=== PATIENT | male | born 1940 | race Caucasian/White ===

== ENCOUNTER 2016-10-02 09:02 | Emergency (ER) | payer MEDICARE ==
--- NOTE | 2016-10-02 11:22 | RAD ---
Indication: Left rib pain after fall. No prior study is available for comparison. 2 views of the chest including dual energy PA views demonstrate no mediastinal shift. Mild cardiomegaly is noted. Lung kaplan appear hyperinflated. Pacemaker leads are in place. IMPRESSION: Hyperinflated lung kaplan without evidence of pneumothorax.
--- NOTE | 2016-10-02 11:23 | RAD ---
Indication: Left rib pain 3 views of left ribs demonstrate no definite fracture. No pneumothorax is noted. Degenerative changes of the glenohumeral joint is noted. IMPRESSION: No fracture of the left RIBS is identified.
--- NOTE | 2016-10-02 11:23 | RAD ---
INDICATION: Left femur injury. TECHNIQUE: 2 views of the left femur were obtained. FINDINGS: The bones are normal alignment. No fracture is seen. 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 IMPRESSION: NO EVIDENCE FOR FRACTURE.
--- NOTE | 2016-10-02 11:23 | RAD ---
INDICATION: Left ankle injury. TECHNIQUE: 3 views of the left ankle were obtained. FINDINGS: Soft tissue swelling is noted along the anterolateral aspect of the ankle. No fracture is seen. Joint spaces appear maintained. IMPRESSION: SOFT TISSUE SWELLING, NO FRACTURE IS SEEN.
--- NOTE | 2016-10-23 09:59 | UC ---
Gustabo Hernandez Aidan, scribed for Alpa Torres MD on 10/02/16 at 1005 . Truncal Trauma HPI - HPI Summary HPI Summary: 76 y/o male presents to the Urgent Care with a complaint of acute, constant, moderate (7/10) left rib, left ankle, and left leg pain that resulted from him missing a step and falling down 4 steps before crashing into a flower pot and landing on his left ankle, knee, head and ribcage on the grass. Standing up and sitting down slightly aggravates his pain. According to the patients daughter, he flew 10 feet before hitting the flower pot. Pt denies any LOC, neck pain, or BUCK. He is currently on Cerealto. He declines analgesics. - History Of Current Complaint Chief Complaint: UCUpperExtremity Stated Complaint: RIB INJURY Time Seen by Provider: 10/02/16 09:37 Hx Obtained From: Patient, Family/Private Inquiry Agent - daughter Onset/Duration: Sudden Onset, Lasting Hours - just over an hour ago, Still Present Onset Of Pain: Immediate - immediately after accident Severity Initially: Moderate Severity Currently: Moderate Pain Intensity: 7 Pain Scale Used: 0-10 Numeric Mechanism Of Injury: Fall From Height Of: - 4 steps (roughly 10 feet according to the daughter who witnessed the fall) Aggravating Factor(s): Movement - standing up and sitting down aggravates the pain Alleviating factor(s): Nothing - unknown Associated Signs And Symptoms: Negative: Negative - left rib, left ankle, and left leg pain Related History: Heart Disease - Allergies/Home Medications Allergies/Adverse Reactions: Allergies Allergy/AdvReac Type Severity Reaction Status Date / Time Penicillins [PCN] Allergy Hives Verified 10/02/16 09:10 Home Medications: Home Medications Alprazolam [Xanax Xr] 0.5 mg PO 10/02/16 [History] Amlodipine Besylate [Norvasc 2.5 mg tab] 2.5 mg PO DAILY 10/02/16 [History Confirmed 10/02/16] Atorvastatin* [Lipitor*] 20 mg PO 1700 10/02/16 [History Confirmed 10/02/16] Esomeprazole(NF) [NexIUM(NF)] 40 mg PO DAILY 10/02/16 [History Confirmed ] Fluticasone-Salmeterol 500-50* [Advair Diskus 500-50*] 1 puff INH BID 10/02/16 [ History Confirmed 10/02/16] Glucosamine Sulfate [Glucosamine] 1,000 mg PO 10/02/16 [History] Metoprolol Succinate [Toprol Xl] 50 mg PO 10/02/16 [History] Montelukast Sodium TAB* [Singulair TAB*] 10 mg PO DAILY 10/02/16 [History Confirmed 10/02/16] Zwkhs-4-Lsox Ethyl Esters [Lovaza 1 gm] 1 cap PO 10/02/16 [History] Probiotic Product [Probiotic] 1 tab PO 10/02/16 [History] Rivaroxaban TAB(*) [Xarelto 20 mg] 20 mg PO DAILY 10/02/16 [History Confirmed ] Tadalafil [Cialis] 20 mg PO 10/02/16 [History] Valsartan 80 mg PO 10/02/16 [History] PMH/Surg Hx/FS Hx/Imm Hx - Surgical History Surgical History: Yes Surgery Procedure, Year, and Place: rt knee and hip replacement, colon resection from diverticulitis, 5 hernia repairs. - Family History Known Family History: Positive: Cardiac Disease - Social History Occupation: Retired Lives: With Family Alcohol Use: Occasionally Substance Use Type: None Smoking Status (MU): Former Smoker Review of Systems Constitutional: Negative Skin: Negative Eyes: Negative ENT: Negative Respiratory: Negative Gastrointestinal: Negative Genitourinary: Negative Motor: Negative Musculoskeletal: Arthralgia - left rib, left ankle, and left leg pain Neurological: Negative Psychological: Negative All Other Systems Reviewed And Are Negative: Yes Physical Exam Triage Information Reviewed: Yes Appearance: Well-Nourished Vital Signs: Initial Vital Signs Temp 98.7 F 10/02/16 09:05 Pulse 60 10/02/16 09:05 Resp 18 10/02/16 09:05 BP 152/88 10/02/16 09:05 Pulse Ox 97 10/02/16 09:05 Vital Signs Reviewed: Yes Eye Exam: Normal ENT Exam: Normal ENT: Positive: Normal ENT inspection Respiratory Exam: Normal, Other - regular respiratory rate, no dyspnea, no tachypnea Cardiovascular Exam: Normal, Other - regular rate, good capillary refill, good general skin color Abdominal Exam: Normal Abdomen Description: Positive: Nontender, No Organomegaly, Soft Bowel Sounds: Positive: Present Musculoskeletal Exam: Normal Musculoskeletal: Positive: Strength Intact, Edema @ - swollen lateral malleolus , Other: - tender talofibular region, swollen lateral malleolus Neurological Exam: Normal, Other - grossly intact, nonfocal Psychological Exam: Normal, Other - responds easily and appropriately Skin Exam: Normal, Other - no visible or reported rash Skin: Positive: Other - superficial abrasion to the left ankle Diagnostics - Radiology CHEST X-RAY Xray Interpretation: No Acute Changes - IMPRESSION: Hyperinflated lung kaplan without evidence of pneumothorax. Radiology Interpretation Completed By: Radiologist FEMUR X-RAY Xray Interpretation: No Acute Changes - IMPRESSION: NO EVIDENCE FOR FRATURE. Radiology Interpretation Completed By: Radiologist LEFT RIB X-RAY Xray Interpretation: No Acute Changes - IMPRESSION: No fracture of the left rib is identified. Radiology Interpretation Completed By: Radiologist ANKLE X-RAY Xray Interpretation: No Acute Changes - IMPRESSION: Soft tissue swelling, no evidence for fracture is seen. - EKG Cardiac Rate: NL - 78 BPM Cardiac Rhythm: Other Rhythm: New - EKG AT 1004: ATRIAL-SENSED VENTRICULAR COMPLEXES, OTHER COMPLEXES ALSO DETECTED. NO FURTHER ANALYSIS ATTEMPTED DUE TO PACED RHYTHM Truncal Trauma Course/Dx - Course Course Of Treatment: No new problems in CCC. Mr. Duncan is en route (spouse will drive), copies of xrays placed on disk. He will f/u with his pcp tomorrow. Mr. Duncan and family asked several insightful questions, to which I answered to the best of my ability. - Differential Dx/Diagnosis Provider Diagnoses: Hip contusion, acute ankle sprain, multiple contusions. Rib contusion Discharge - Discharge Plan Condition: Stable Disposition: HOME Patient Education Materials: Ankle Sprain (ED), Hip Contusion (ED), Rib Contusion (ED) Referrals: No Primary Care Phys,NOPCP [Primary Care Provider] - Additional Instructions: Call your primary care physician - call today for appointment this week. Seek medical attention for worse or new problems in the meantime. The documentation as recorded by the Gustabo reeves Aidan accurately reflects the service I personally performed and the decisions made by me, Alpa Torres MD.
== END 2016-10-02 11:52 | disposition home or self-care (01) ==
LOC: UCEAST 09:02
DX: S70.00XA Contusion of unspecified hip, initial encounter (principal); S93.409A Sprain of unspecified ligament of unspecified ankle, initial encounter; S20.219A Contusion of unspecified front wall of thorax, initial encounter; W10.8XXA Fall (on) (from) other stairs and steps, initial encounter; Y93.9 Activity, unspecified; Y92.9 Unspecified place or not applicable; Y99.9 Unspecified external cause status; Z96.651 Presence of right artificial knee joint; Z96.641 Presence of right artificial hip joint; Z87.891 Personal history of nicotine dependence
CPT/HCPCS: 71020; 93005; 99203; G0463